=== PATIENT | male | born 1980 | race African-American/Black ===

== ENCOUNTER 2018-08-05 00:43 | Emergency (ER) | payer OTHER ==
[~2018-08-05] VITALS: Ht 188 cm; Wt 79.4 kg
[2018-08-05] MEDS ORDERED: KETO10TA2 PO (04:57)
[2018-08-05] MEDS ORDERED: DUI500 PO (04:57)
== END 2018-08-05 05:08 | disposition home or self-care (01) ==
LOC: ER 00:43
DX: S01.02XA Laceration with foreign body of scalp, initial encounter (principal); S00.83XA Contusion of other part of head, initial encounter; W22.8XXA Striking against or struck by other objects, initial encounter; Y93.89 Activity, other specified; Y92.89 Other specified places as the place of occurrence of the external cause; Y99.8 Other external cause status